=== PATIENT | female | born 2000 | race Caucasian/White ===

== ENCOUNTER 2023-04-09 08:30 | Outpatient (RCR) | payer OTHER, SELFPAY ==
[2023-03-12 08:50] VITALS: BP 129/77
[2023-03-12] MEDS: NSS 1000 IV ×2 (09:00→10:02)
[2023-03-19 09:24] VITALS: BP 116/94
[2023-03-19] MEDS: NSS 1000 IV ×2 (09:40→10:38)
[2023-03-26 08:44] VITALS: BP 142/89
[2023-03-26] MEDS: NSS 1000 IV ×2 (08:55→10:03)
[2023-04-02 09:20] VITALS: BP 113/74
[2023-04-02] MEDS: NSS 1000 IV ×2 (09:35→10:34)
[2023-04-07] VITALS (8 sets, daily range): BP systolic 113–143; BP diastolic 73–91
[2023-04-07] MEDS: NSS 1000 IV (09:51)
[2023-04-07] MEDS: BENADRYL 50 MG PO (09:53)
[2023-04-07] MEDS: TYLENOL 650 MG PO (09:54)
[2023-04-07] MEDS: GAMMAGARD 200 IV ×2 (09:55→11:53)
[2023-04-08] VITALS (7 sets, daily range): BP systolic 110–130; BP diastolic 72–87
[2023-04-08] MEDS: NSS 1000 IV (08:44)
[2023-04-08] MEDS: BENADRYL 50 MG PO (09:44)
[2023-04-08] MEDS: TYLENOL 650 MG PO (09:44)
[2023-04-08] MEDS: GAMMAGARD 200 IV ×2 (09:45→11:16)
[2023-04-09] VITALS (7 sets, daily range): BP systolic 113–130; BP diastolic 76–85
[2023-04-09] MEDS: NSS 1000 IV (09:03)
[2023-04-09] MEDS: TYLENOL 650 MG PO (09:06)
[2023-04-09] MEDS: BENADRYL 25 MG PO (09:06)
[2023-04-09] MEDS: GAMMAGARD 200 IV ×2 (09:10→10:42)
== END 2023-04-09 15:43 | disposition home or self-care (01) ==
LOC: OID 08:30
PROVIDERS: ATTENDING PHYSICIAN Student in an Organized Health Care Education/Training Program
DX: I49.8 Other specified cardiac arrhythmias (principal); N92.1 Excessive and frequent menstruation with irregular cycle; R76.8 Other specified abnormal immunological findings in serum
CPT/HCPCS: 96360; 96361; 96365; 96366; J1569

== ENCOUNTER 2023-05-07 08:31 | Outpatient (RCR) | payer OTHER, SELFPAY ==
[2023-04-10 09:00] VITALS: BP 129/82
[2023-04-10] MEDS: TYLENOL 650 MG PO (09:20)
[2023-04-10] MEDS: BENADRYL 25 MG PO (09:20)
[2023-04-10] MEDS: NSS 1000 IV (09:25)
[2023-04-10] MEDS: GAMMAGARD 200 IV ×2 (09:26→10:55)
[2023-04-10 09:27] VITALS: BP 122/84
[2023-04-10 09:57] VITALS: BP 121/80
[2023-04-10 10:27] VITALS: BP 121/82
[2023-04-10 10:57] VITALS: BP 135/89
[2023-04-10 11:27] VITALS: BP 123/80
[2023-04-23 09:27] VITALS: BP 117/81
[2023-04-23] MEDS: NSS 1000 IV ×2 (09:34→10:36)
[2023-05-04] VITALS (7 sets, daily range): BP systolic 116–140; BP diastolic 69–78
[2023-05-04] MEDS: BENADRYL 25 MG PO (08:48)
[2023-05-04] MEDS: TYLENOL 650 MG PO (08:49)
[2023-05-04] MEDS: GAMMAGARD 200 IV ×2 (08:49→10:19)
[2023-05-04] MEDS: NSS 1000 IV (08:49)
[2023-05-05] VITALS (8 sets, daily range): BP systolic 120–138; BP diastolic 77–91
[2023-05-05] MEDS: NSS 1000 IV (08:45)
[2023-05-05] MEDS: TYLENOL 650 MG PO (08:46)
[2023-05-05] MEDS: BENADRYL 25 MG PO (08:46)
[2023-05-05] MEDS: GAMMAGARD 200 IV ×2 (08:47→10:15)
[2023-05-06] VITALS (8 sets, daily range): BP systolic 116–123; BP diastolic 72–82
[2023-05-06] MEDS: NSS 1000 IV (08:55)
[2023-05-06] MEDS: BENADRYL 25 MG PO (08:55)
[2023-05-06] MEDS: GAMMAGARD 200 IV ×2 (08:56→10:30)
[2023-05-07] VITALS (8 sets, daily range): BP systolic 112–127; BP diastolic 69–85
[2023-05-07] MEDS: NSS 1000 IV (08:50)
[2023-05-07] MEDS: BENADRYL 25 MG PO (09:11)
[2023-05-07] MEDS: GAMMAGARD 200 IV ×2 (09:12→10:50)
== END 2023-05-10 23:59 | disposition home or self-care (01) ==
LOC: OID 08:31
PROVIDERS: ATTENDING PHYSICIAN Student in an Organized Health Care Education/Training Program; OTHER PHYSICIAN Student in an Organized Health Care Education/Training Program
DX: I49.8 Other specified cardiac arrhythmias (principal); N92.1 Excessive and frequent menstruation with irregular cycle; R76.8 Other specified abnormal immunological findings in serum
CPT/HCPCS: 96360; 96361; 96365; 96366; J1569

== ENCOUNTER 2023-06-04 08:31 | Outpatient (RCR) | payer OTHER, SELFPAY ==
[2023-05-21 08:35] VITALS: BP 124/89
[2023-05-21] MEDS: NSS 1000 IV ×2 (08:43→09:47)
[2023-06-01] VITALS (10 sets, daily range): BP systolic 109–131; BP diastolic 66–80
[2023-06-01] MEDS: BENADRYL 25 MG PO (09:04)
[2023-06-01] MEDS: NSS 1000 IV (09:04)
[2023-06-01] MEDS: TYLENOL 650 MG PO (09:04)
[2023-06-01] MEDS: GAMMAGARD 200 IV ×2 (09:05→11:21)
[2023-06-02] VITALS (11 sets, daily range): BP systolic 106–128; BP diastolic 65–83
[2023-06-02] MEDS: TYLENOL 650 MG PO (09:01)
[2023-06-02] MEDS: BENADRYL 25 MG PO (09:01)
[2023-06-02] MEDS: NSS 1000 IV (09:02)
[2023-06-02] MEDS: GAMMAGARD 200 IV ×2 (09:04→11:18)
[2023-06-03] VITALS (9 sets, daily range): BP systolic 98–131; BP diastolic 71–83
[2023-06-03] MEDS: BENADRYL 25 MG PO (08:57)
[2023-06-03] MEDS: TYLENOL 650 MG PO (08:57)
[2023-06-03] MEDS: GAMMAGARD 200 IV ×2 (08:58→10:49)
[2023-06-03] MEDS: NSS 1000 IV (08:58)
[2023-06-04] VITALS (11 sets, daily range): BP systolic 115–128; BP diastolic 73–97
[2023-06-04] MEDS: GAMMAGARD 200 IV ×2 (08:50→10:59)
[2023-06-04] MEDS: NSS 1000 IV (08:50)
[2023-06-04] MEDS: TYLENOL 650 MG PO (08:51)
[2023-06-04] MEDS: BENADRYL 25 MG PO (08:51)
== END 2023-06-04 14:27 | disposition home or self-care (01) ==
LOC: OID 08:31
PROVIDERS: ATTENDING PHYSICIAN Student in an Organized Health Care Education/Training Program; OTHER PHYSICIAN Student in an Organized Health Care Education/Training Program
DX: I49.8 Other specified cardiac arrhythmias (principal); N92.1 Excessive and frequent menstruation with irregular cycle; R76.8 Other specified abnormal immunological findings in serum
CPT/HCPCS: 96360; 96361; 96365; 96366; J1569

== ENCOUNTER 2023-07-02 08:29 | Outpatient (RCR) | payer OTHER, SELFPAY ==
[2023-06-18] MEDS: NSS 1000 IV ×2 (08:58→09:56)
[2023-06-18 09:07] VITALS: BP 121/85
[2023-06-29] VITALS (12 sets, daily range): BP systolic 94–130; BP diastolic 59–93
[2023-06-29] MEDS: NSS 1000 IV ×2 (09:15→12:18)
[2023-06-29] MEDS: TYLENOL 650 MG PO (09:16)
[2023-06-29] MEDS: BENADRYL 25 MG PO (09:17)
[2023-06-29] MEDS: GAMMAGARD 200 IV ×2 (09:18→11:37)
[2023-06-30] VITALS (11 sets, daily range): BP systolic 114–132; BP diastolic 73–91
[2023-06-30] MEDS: NSS 1000 IV ×2 (08:50→11:32)
[2023-06-30] MEDS: TYLENOL 650 MG PO (08:50)
[2023-06-30] MEDS: BENADRYL 25 MG PO (08:50)
[2023-06-30] MEDS: GAMMAGARD 200 IV ×2 (08:54→11:11)
[2023-07-01] VITALS (12 sets, daily range): BP systolic 107–133; BP diastolic 70–85
[2023-07-01] MEDS: NSS 1000 IV ×2 (09:06→11:54)
[2023-07-01] MEDS: BENADRYL 25 MG PO (09:06)
[2023-07-01] MEDS: TYLENOL 650 MG PO (09:07)
[2023-07-01] MEDS: GAMMAGARD 200 IV ×2 (09:07→11:28)
[2023-07-02] VITALS (11 sets, daily range): BP systolic 109–134; BP diastolic 71–82
[2023-07-02] MEDS: NSS 1000 IV ×2 (09:15→11:55)
[2023-07-02] MEDS: BENADRYL 25 MG PO (09:15)
[2023-07-02] MEDS: TYLENOL 650 MG PO (09:15)
[2023-07-02] MEDS: GAMMAGARD 200 IV ×2 (09:16→11:35)
== END 2023-07-03 09:29 | disposition home or self-care (01) ==
LOC: OID 08:29
PROVIDERS: ATTENDING PHYSICIAN Student in an Organized Health Care Education/Training Program; OTHER PHYSICIAN Student in an Organized Health Care Education/Training Program
DX: I49.8 Other specified cardiac arrhythmias (principal); N92.1 Excessive and frequent menstruation with irregular cycle; R76.8 Other specified abnormal immunological findings in serum
CPT/HCPCS: 96360; 96361; 96365; 96366; J1569

== ENCOUNTER 2023-08-06 08:32 | Outpatient (RCR) | payer OTHER, SELFPAY ==
[2023-07-27] VITALS (12 sets, daily range): BP systolic 111–134; BP diastolic 69–88
[2023-07-27] MEDS: BENADRYL 25 MG PO (08:50)
[2023-07-27] MEDS: NSS 1000 IV ×2 (08:50→11:10)
[2023-07-27] MEDS: TYLENOL 650 MG PO (08:50)
[2023-07-27] MEDS: GAMMAGARD 200 IV ×2 (08:51→11:08)
[2023-07-28] VITALS (11 sets, daily range): BP systolic 113–138; BP diastolic 4–88
[2023-07-28] MEDS: NSS 1000 IV ×2 (08:09→10:35)
[2023-07-28] MEDS: BENADRYL 25 MG PO (08:09)
[2023-07-28] MEDS: TYLENOL 650 MG PO (08:09)
[2023-07-28] MEDS: GAMMAGARD 200 IV ×2 (08:10→10:34)
[2023-07-29] VITALS (11 sets, daily range): BP systolic 119–131; BP diastolic 75–89
[2023-07-29] MEDS: BENADRYL 25 MG PO (08:17)
[2023-07-29] MEDS: NSS 1000 IV ×2 (08:17→10:53)
[2023-07-29] MEDS: TYLENOL 650 MG PO (08:17)
[2023-07-29] MEDS: GAMMAGARD 200 IV ×2 (08:18→10:28)
[2023-07-30] VITALS (11 sets, daily range): BP systolic 115–140; BP diastolic 75–91
[2023-07-30] MEDS: TYLENOL 650 MG PO (08:02)
[2023-07-30] MEDS: NSS 1000 IV ×2 (08:02→10:19)
[2023-07-30] MEDS: BENADRYL 25 MG PO (08:03)
[2023-07-30] MEDS: GAMMAGARD 200 IV ×2 (08:03→10:18)
[2023-08-06 08:25] VITALS: BP 130/83
[2023-08-06] MEDS: NSS 1000 IV ×2 (08:45→09:51)
== END 2023-08-07 09:55 | disposition home or self-care (01) ==
LOC: OID 08:32
PROVIDERS: ATTENDING PHYSICIAN Student in an Organized Health Care Education/Training Program; OTHER PHYSICIAN Student in an Organized Health Care Education/Training Program
DX: I49.8 Other specified cardiac arrhythmias (principal); N92.1 Excessive and frequent menstruation with irregular cycle; R76.8 Other specified abnormal immunological findings in serum
CPT/HCPCS: 96360; 96361; 96365; 96366; J1569

== ENCOUNTER 2023-08-26 07:39 | Outpatient (RCR) | payer OTHER, SELFPAY ==
[2023-08-24] VITALS (12 sets, daily range): BP systolic 112–138; BP diastolic 68–87
[2023-08-24] MEDS: BENADRYL 25 MG PO (08:14)
[2023-08-24] MEDS: TYLENOL 650 MG PO (08:15)
[2023-08-24] MEDS: GAMMAGARD 200 IV ×2 (08:15→10:31)
[2023-08-24] MEDS: NSS 1000 IV ×2 (08:16→10:48)
[2023-08-25] VITALS (11 sets, daily range): BP systolic 106–119; BP diastolic 67–80
[2023-08-25] MEDS: NSS 1000 IV ×2 (08:03→10:24)
[2023-08-25] MEDS: TYLENOL 650 MG PO (08:05)
[2023-08-25] MEDS: GAMMAGARD 200 IV ×2 (08:05→10:24)
[2023-08-25] MEDS: BENADRYL 25 MG PO (08:06)
[2023-08-26] VITALS (11 sets, daily range): BP systolic 104–122; BP diastolic 62–85
[2023-08-26] MEDS: NSS 1000 IV ×2 (07:53→10:26)
[2023-08-26] MEDS: BENADRYL 25 MG PO (07:54)
[2023-08-26] MEDS: GAMMAGARD 200 IV ×2 (07:54→10:23)
[2023-08-26] MEDS: TYLENOL 650 MG PO (07:54)
== END 2023-09-07 14:24 | disposition home or self-care (01) ==
LOC: OID 07:39
PROVIDERS: ATTENDING PHYSICIAN Student in an Organized Health Care Education/Training Program; OTHER PHYSICIAN Student in an Organized Health Care Education/Training Program
DX: I49.8 Other specified cardiac arrhythmias (principal); N92.1 Excessive and frequent menstruation with irregular cycle; R76.8 Other specified abnormal immunological findings in serum
CPT/HCPCS: 96360; 96361; 96365; 96366; J1569

== ENCOUNTER 2023-09-24 07:42 | Outpatient (RCR) | payer OTHER, SELFPAY ==
[2023-09-21] VITALS (12 sets, daily range): BP systolic 100–114; BP diastolic 70–81
[2023-09-21] MEDS: NSS 1000 IV ×2 (08:19→10:40)
[2023-09-21] MEDS: BENADRYL 25 MG PO (08:19)
[2023-09-21] MEDS: TYLENOL 650 MG PO (08:19)
[2023-09-21] MEDS: GAMMAGARD 200 IV ×2 (08:19→10:39)
[2023-09-22] VITALS (12 sets, daily range): BP systolic 113–132; BP diastolic 68–86
[2023-09-22] MEDS: GAMMAGARD 200 IV ×2 (08:04→10:28)
[2023-09-22] MEDS: TYLENOL 650 MG PO (08:04)
[2023-09-22] MEDS: NSS 1000 IV ×2 (08:04→10:37)
[2023-09-22] MEDS: BENADRYL 25 MG PO (08:05)
[2023-09-23] VITALS (12 sets, daily range): BP systolic 113–138; BP diastolic 71–91
[2023-09-23] MEDS: BENADRYL 25 MG PO (08:07)
[2023-09-23] MEDS: NSS 1000 IV ×2 (08:07→10:36)
[2023-09-23] MEDS: TYLENOL 650 MG PO (08:07)
[2023-09-23] MEDS: GAMMAGARD 200 IV ×2 (08:08→10:36)
[2023-09-24] VITALS (12 sets, daily range): BP systolic 108–125; BP diastolic 68–86
[2023-09-24] MEDS: NSS 1000 IV ×2 (08:00→10:36)
[2023-09-24] MEDS: TYLENOL 650 MG PO (08:04)
[2023-09-24] MEDS: BENADRYL 25 MG PO (08:05)
[2023-09-24] MEDS: GAMMAGARD 200 IV ×2 (08:06→10:25)
== END 2023-10-10 23:59 | disposition home or self-care (01) ==
LOC: OID 07:42
PROVIDERS: Student in an Organized Health Care Education/Training Program; ATTENDING PHYSICIAN Family Medicine; OTHER PHYSICIAN Student in an Organized Health Care Education/Training Program
DX: M33.90 Dermatopolymyositis, unspecified, organ involvement unspecified (principal); I49.8 Other specified cardiac arrhythmias (principal); N92.1 Excessive and frequent menstruation with irregular cycle; R76.8 Other specified abnormal immunological findings in serum
CPT/HCPCS: 96360; 96361; 96365; 96366; J1569